=== PATIENT | male | born 1945 | race Caucasian/White ===

== ENCOUNTER 2017-08-11 06:17 | Day surgery (SDC) | payer MEDICARE, MEDICAID ==
[~2017-08-11] VITALS: Ht 180.3 cm; Wt 82.5 kg
[~2017-08-11 06:17] MED LIST: ASPIRIN EC81 MG PO; BENADRYL25 MG PO; CARVEDILOL3.125 MG PO; FLAGYL500 MG PO; HYDROCHLOROTHIA25 MG PO; IMDUR30 MG PO; IRON160 MG PO; ISOSORBIDE MONO30 MG PO; METOPROLOL SUCC25 MG PO; MIRALAX17 GM PO; NITROSTAT0.4 MG SL; NO MEDICATIONS; NORCO 5-325 TA1 EACH PO; OMEPRAZOLE20 M1 PO; OMEPRAZOLE20 MG PO; PROMETHAZINE HC25 M1 PO; PROTONIX40 MG PO; ROBITUSSIN COU118 M4 PO; VITAMIN C500 M1 PO
--- NOTE | 2017-08-11 07:47 | NUR ---
08/11/17 0747 Shi Posada 0742-PATIENT ARRIVED TO PACU ON 3L NC 02 SAT 97% ABDOMEN SOFT. RR EVEN. PATIENT REACTIVE AROUSES TO VERBAL STIMULI DENIES PAIN OR NAUSEA.
--- NOTE | 2017-08-11 10:02 | OR ---
[facility] [address] [place], [place] [address] Signed DATE OF OPERATION: 08/11/2017 SURGEON: Flores Cates MD PREOPERATIVE DIAGNOSIS: Right colon cancer status post right colectomy in 07/2016. POSTOPERATIVE DIAGNOSES: 1. Mild sigmoid diverticulosis. 2. Moderate external hemorrhoids. PROCEDURE: Colonoscopy without biopsy. ESTIMATED BLOOD LOSS: None. INDICATIONS: Gabino is a 72-year-old gentleman, who came to us in July of 2016, for a right colectomy for stage II colon cancer. He has a stapled floq-ls-onke ileocolonic anastomosis. As expected, he did not undergo chemotherapy. He said he has been feeling great. He is having good bowel movements. To his knowledge, there is no family history of colon cancer or polyps. In the office, I gave him a pamphlet on colonoscopy. We looked at that together along with the risks including, but not limited to gas bloating, crampy abdominal pain, bleeding, perforation, requiring surgery, and missed diagnosis. We also discussed the need for IV conscious sedation. He had expressed understanding and wished to proceed. PROCEDURE NOTE: Gabino was taken into our endoscopy suite and placed in the left lateral decubitus position. He was given 4 mg of Versed and 100 mcg of fentanyl to cover the case. A digital rectal exam was performed. He does have some moderate external circumferential hemorrhoids. On his left posterior side, he had a beefy hemorrhoids, probably the size of a marble. He might want to use some Vaseline or Preparation H after the procedure. The prostate gland was just slightly enlarged and indurated, but no dominant nodule. The adult colonoscope was then introduced and advanced all around to the beginning of the proximal transverse colon without difficulty. His prep was moderate. He had a couple areas of dark liquid stool, most of which was suctioned out. One could easily see the anastomosis. It is healed well. There is no ulceration. No evidence of any recurrent cancer. The scope was then slowly withdrawn. He does have diverticula in the Electronically Signed By: FLORES CATES MD 08/11/17 1002 PATIENT NAME: KEYONA HIRSCHGABINO OPERATIVE REPORT DATE OF : 45 REPORT #: [id number] PHYSICIAN: FLORES CATES MD PCP: NELLY WOLFE MD REPORT IS CONFIDENTIAL AND NOT TO BE RELEASED WITHOUT AUTHORIZATION [facility] [address] [place], [place] [address] Signed sigmoid colon. They were moderate in size, but few in number and scattered about. The rectum was unremarkable. Upon retroflexion of scope, I really very little in the way of internal hemorrhoid tissue. After this, the gas was suctioned out and the colonoscope removed. Gabino tolerated the procedure quite well. RECOMMENDATIONS: I will see Gabino back in 1 year for followup colonoscopy. Flores Cates MD ALB/MODL /[id number] cc: Jaskaran C Sydnee, MD RON Shell MD Scott C Brancato, MD Copies: JASKARAN SHERMAN MD, WADE R FNP BOWER, ANDREW L MD BRANCATO, SCOTT C MD ~ Electronically Signed By: FLORES CATES MD 08/11/17 1002 PATIENT NAME: GABINO RAND SR Janeth OPERATIVE REPORT DATE OF : 45 REPORT #: [id number] PHYSICIAN: FLORES CATES MD PCP: NELLY WOLFE MD REPORT IS CONFIDENTIAL AND NOT TO BE RELEASED WITHOUT AUTHORIZATION
== END 2017-08-11 08:31 | disposition home or self-care (01) ==
LOC: OPS 06:17 → DS 06:17 → OPS 06:45 → DS 06:45 → OPS 08:31
PROVIDERS: Colon & Rectal Surgery
PROC: 0DJD8ZZ Inspection of Lower Intestinal Tract, Via Natural or Artificial Opening Endoscopic (ICD-10-PCS; principal; 2017-08-11 06:45)
DX: Z12.11 Encounter for screening for malignant neoplasm of colon (principal); K57.30 Diverticulosis of large intestine without perforation or abscess without bleeding; K64.4 Residual hemorrhoidal skin tags; I10 Essential (primary) hypertension; Z98.890 Other specified postprocedural states; Z85.038 Personal history of other malignant neoplasm of large intestine; Z90.49 Acquired absence of other specified parts of digestive tract; Z87.891 Personal history of nicotine dependence; Z88.2 Allergy status to sulfonamides; Z79.82 Long term (current) use of aspirin; Z79.899 Other long term (current) drug therapy
CPT/HCPCS: 99153; G0500; J2250; J3010; J7120

== ENCOUNTER 2018-12-28 09:12 | Day surgery (SDC) | payer MEDICARE, MEDICAID ==
[~2018-12-28] VITALS: Ht 180.3 cm; Wt 83.0 kg
--- NOTE | 2018-12-28 11:15 | NUR ---
12/28/18 Gael5 Shi Posada 1111-PATIENT ARRIVED TO PACU ON 2L NC RR EVEN DROWSY AWAKE DENIES PAIN OR NAUSEA. ABDOMEN SOFT. CO2 32. PATIENT DOZES BACK TO SLEEP.
--- NOTE | 2018-12-29 08:14 | OR ---
[facility] [address] [place], [place] [address] Signed DATE OF OPERATION: 12/28/2018 SURGEON: Flores Cates MD PREOPERATIVE DIAGNOSES: 1. Stage II colon cancer in 2017. 2. Right colectomy in 2017. 3. Diverticulosis. 4. External hemorrhoids. POSTOPERATIVE DIAGNOSES: 1. Myneytj-nd-opqmsuls internal and external hemorrhoids. 2. Vtyizdl-ec-cvsoeylh sigmoid diverticulosis. PROCEDURE: Colonoscopy without biopsy (95 cm). ESTIMATED BLOOD LOSS: None. INDICATIONS: Gabino is a 73-year-old gentleman who came in 2017. He had stage II right colon cancer. He underwent a standard right colectomy with a stapled nwha-ot-hean ileocolonic anastomosis. He did not need chemotherapy. He has been doing well since then. He had followup endoscopy last year and it showed the diverticulosis with some internal hemorrhoids. He continues to do well. I met with him in the office. I gave him a pamphlet on colonoscopy and we looked at that together along with the risks including, but not limited to gas, bloating, crampy abdominal pain, bleeding, perforation requiring surgery, and missed diagnosis. We also discussed the need for IV conscious sedation. He had expressed understanding and wished to proceed. PROCEDURE NOTE: Gabino was taken into our endoscopy suite and placed in the left lateral decubitus position. He was given IV sedation with 6 mg of Versed and 125 mcg of fentanyl. A digital rectal exam was performed. He does have some moderate beefy external hemorrhoids, probably from his bowel prep. The prostate gland is mildly enlarged and indurated. The adult colonoscope was introduced and advanced all around into the proximal transverse colon at about 95 cm. His prep was good. We looked carefully around the proximal transverse colon. No evidence of any recurrent cancer. We could see a few willie and a few silk sutures. We turned the camera and went into the Electronically Signed By: FLORES CATES MD 12/29/18 0814 PATIENT NAME: GBAINO RAND OPERATIVE REPORT DATE OF : 45 REPORT #: [id number] PHYSICIAN: FLORES CATES MD PCP: SHALINI COURTNEY REPORT IS CONFIDENTIAL AND NOT TO BE RELEASED WITHOUT AUTHORIZATION [address] [address] Signed terminal ileum a short distance. It was unremarkable as well. The scope was then slowly withdrawn. Again, he does have rpitevo-sf-ddvfrzea sigmoid diverticulosis. They were wwdogrv-op-gigdxqxa in number, moderate in size and scattered about. The rectum was unremarkable. Upon retroflexion of scope, he does have wuwntgy-jw-kgtfhtfa internal hemorrhoids as well. After this, the gas was suctioned out. The colonoscope removed. Gabino tolerated the procedure quite well. RECOMMENDATIONS: Gabino can follow up in one year for repeat colonoscopy. He is welcome to use some otmd-snd-ksnlzdx hemorrhoid cream for those external hemorrhoids. Flores Cates MD ALB/ROBBYL /[id number] cc: MD Jean Pascual MD Wade R Hunsaker, FNP Scott C Brancato, MD Copies: FLORES CATES MD,SHALINI WILSON MD, SCOTT C MD ~ Electronically Signed By: FLORES CATES MD 12/29/18 0814 PATIENT NAME: GABINO RAND OPERATIVE REPORT DATE OF : 45 REPORT #: [id number] PHYSICIAN: FLORES CATES MD PCP: SHALINI COURTNEY REPORT IS CONFIDENTIAL AND NOT TO BE RELEASED WITHOUT AUTHORIZATION
== END 2018-12-28 12:25 | disposition home or self-care (01) ==
LOC: DS 09:12 → OPS 09:12 → DS 10:30 → OPS 12:25
PROVIDERS: Colon & Rectal Surgery
PROC: 0DJD8ZZ Inspection of Lower Intestinal Tract, Via Natural or Artificial Opening Endoscopic (ICD-10-PCS; principal; 2018-12-28 10:30)
DX: Z12.11 Encounter for screening for malignant neoplasm of colon (principal); K57.30 Diverticulosis of large intestine without perforation or abscess without bleeding; K64.8 Other hemorrhoids; K64.4 Residual hemorrhoidal skin tags; I10 Essential (primary) hypertension; M19.90 Unspecified osteoarthritis, unspecified site; Z85.038 Personal history of other malignant neoplasm of large intestine; Z90.49 Acquired absence of other specified parts of digestive tract; Z87.891 Personal history of nicotine dependence; Z88.2 Allergy status to sulfonamides; Z88.8 Allergy status to other drugs, medicaments and biological substances; Z79.899 Other long term (current) drug therapy; Z79.82 Long term (current) use of aspirin
CPT/HCPCS: 99153; G0500; J2250; J3010; J7120

== ENCOUNTER 2020-05-06 07:35 | Day surgery (SDC) | payer MEDICARE, MEDICAID ==
[~2020-05-06] VITALS: Ht 175.3 cm; Wt 83.9 kg
--- NOTE | 2020-05-06 09:37 | NUR ---
05/06/20 0937 Edel Tran 0935 PATIENT ARRIVES TO PACU AWAKE BUT DROWSY. RESP EVEN AND UNLABORED, NC AT 3 LITERS. PATIENT DENIES PAIN OR NAUSEA.
--- NOTE | 2020-05-07 06:41 | OR ---
[facility] [address] [place], [place] [address] Signed DATE OF OPERATION: 05/06/2020 SURGEON: Flores Cates MD PREOPERATIVE DIAGNOSES: 1. Right colectomy for stage II colon cancer in 2017. 2. Moderate internal and external hemorrhoids. 3. Brother with colon cancer. POSTOPERATIVE DIAGNOSES: 1. 4 mm rectal polyps x2 at 8 and 10 cm. 2. Moderate internal and external hemorrhoids. 3. Ileocolonic anastomosis at 90 cm. 4. Moderate sigmoid diverticulosis. PROCEDURE: Colonoscopy with hot biopsy. ESTIMATED BLOOD LOSS: None. INDICATIONS: Gabino is a 74-year-old gentleman, who came in 2017 for a right colectomy for a stage II colon cancer. He has a stapled aqoh-px-jnvt ileocolonic anastomosis to the proximal transverse colon at 90 cm. Of course, he did not require chemotherapy. In the meantime, he did have a pacemaker placed. Also, he has moderate internal and external hemorrhoids along with diverticulosis. Gabino continues to be quite active and healthy, cutting firewood, traveling around the mountains and so forth. He also hunts elk with his daughter. He returns now for a followup colonoscopy. He told me on this occasion that his brother had colon cancer. He has no lower GI complaints. I met with Gabino in the office and we reviewed colonoscopy in detail. He understands the nature of the test along with the risks including, but not limited to gas bloating, crampy abdominal pain, bleeding, perforation requiring surgery, and missed diagnosis. He also understands the need for IV conscious sedation. He had expressed understanding and wished to proceed. PROCEDURE NOTE: Gabino was taken into our endoscopy suite and placed in the left lateral decubitus position. He was given 5 mg of Versed and 100 mcg of fentanyl to cover the case. A digital rectal exam was performed and he does have moderate external hemorrhoids. He had good sphincter tone. No masses. The adult colonoscope was introduced and advanced Electronically Signed By: FLORES CATES MD 05/07/20 0641 PATIENT NAME: GABINO RAND OPERATIVE REPORT DATE OF : 45 REPORT #: [id number] PHYSICIAN: FLORES CATES MD PCP: NO PRIMARY CARE PHYSICIAN REPORT IS CONFIDENTIAL AND NOT TO BE RELEASED WITHOUT AUTHORIZATION [facility] [address] [place], [place] [address] Signed all around into the proximal transverse colon at 90 cm. We could easily see his well healed anastomosis. No evidence of any recurrence or ulceration or granulation tissue at the anastomosis. His prep was quite excellent. The scope was slowly withdrawn. We could easily see the diverticula in the sigmoid colon. They were moderate in size, moderate in number, and scattered about. He had two tiny polyps in the rectum, which we removed with the help of hot biopsy forceps. Upon retroflexion of scope of course, he has a dominant moderate-sized internal hemorrhoid column. After this, the gas was suctioned out and the colonoscope removed. Gabino tolerated the procedure quite well. RECOMMENDATIONS: I will see Gabino back in my office in 7 to 14 days to review his results. I suspect his next colonoscopy will be in three years. Flores Cates MD ALB/MODL /[id number] cc: RON Shell MD Copies: SHALINI COURTNEY ANDREW L MD ~ Electronically Signed By: FLORES CATES MD 05/07/20 0641 PATIENT NAME: GABINO RAND OPERATIVE REPORT DATE OF : 45 REPORT #: [id number] PHYSICIAN: FLORES CATES MD PCP: NO PRIMARY CARE PHYSICIAN REPORT IS CONFIDENTIAL AND NOT TO BE RELEASED WITHOUT AUTHORIZATION
--- NOTE | 2020-05-07 12:50 | PATH ---
[facility] [address] [place], [place] [address] Signed SPECIMEN(S): A RECTAL POLYP AT 8 CM SPECIMEN SOURCE: A. RECTAL POLYP AT 8 CM CLINICAL HISTORY: Colonoscopy with possible biopsy and/or polypectomy. History of colon CA, right colectomy. MICROSCOPIC DESCRIPTION: Histologic sections of all submitted blocks are examined by light microscopy. These findings, together with the gross examination, support the pathologic diagnosis. FINAL PATHOLOGIC DIAGNOSIS: Rectum, 8 cm, polypectomy: - Tubular adenoma. BRP:em:C2NR GROSS DESCRIPTION: The specimen, labeled "GT, 1," and designated on the requisition "rectal polyp at 8 cm," is received in formalin and consists of three castro soft tissue fragments that measure 0.3-0.4 cm in greatest dimension. The specimen is entirely submitted in cassette (A1). AT (under the direct supervision of a pathologist) The Gross Description was prepared using a voice recognition system. The report was reviewed for accuracy; however, sound-alike word errors, addition and/or deletions may occur. If there is any question about this report, please contact Client Services. PERFORMING LABORATORY: The technical component was performed by [facility], [address] [place] [id number] (Business Systems Developer: Sharon Sanabria MD; CLIA# [id number]). [facility], [address] [address] (CLIA# [id number]). Diagnostician: Freddie Hong MD Pathologist Electronically Signed 05/07/2020 PATIENT NAME: JL RAND PATHOLOGY DATE OF : 45 REPORT #: [id number] PHYSICIAN: [facility] PCP: NO PRIMARY CARE PHYSICIAN REPORT IS CONFIDENTIAL AND NOT TO BE RELEASED WITHOUT AUTHORIZATION [address] [address] Signed Copies: ~ PATIENT NAME: JL RAND PATHOLOGY DATE OF : 45 REPORT #: [id number] PHYSICIAN: [facility] PCP: NO PRIMARY CARE PHYSICIAN REPORT IS CONFIDENTIAL AND NOT TO BE RELEASED WITHOUT AUTHORIZATION
== END 2020-05-06 10:10 | disposition home or self-care (01) ==
LOC: OPS 07:35 → DS 07:41 → OPS 09:15 → DS 10:30
PROVIDERS: ATTEND Colon & Rectal Surgery
PROC: 0DBP8ZX Excision of Rectum, Via Natural or Artificial Opening Endoscopic, Diagnostic (ICD-10-PCS; principal; 2020-05-06 09:15)
DX: D12.8 Benign neoplasm of rectum (principal); K64.8 Other hemorrhoids; K57.30 Diverticulosis of large intestine without perforation or abscess without bleeding; K64.4 Residual hemorrhoidal skin tags; Z85.038 Personal history of other malignant neoplasm of large intestine; Z98.0 Intestinal bypass and anastomosis status; Z90.49 Acquired absence of other specified parts of digestive tract; Z80.0 Family history of malignant neoplasm of digestive organs; Z95.0 Presence of cardiac pacemaker; Z87.891 Personal history of nicotine dependence; Z88.1 Allergy status to other antibiotic agents; Z88.2 Allergy status to sulfonamides; Z88.8 Allergy status to other drugs, medicaments and biological substances; Z11.59 Encounter for screening for other viral diseases
CPT/HCPCS: 88305; 99153; G0500; J0690; J2250; J3010; J7121